=== PATIENT | male | born 1965 | race Caucasian/White ===

== ENCOUNTER 2020-05-10 13:05 | Emergency (ER) | payer MEDICAID ==
[~2020-05-10] VITALS: Ht 170.2 cm; Wt 84.0 kg
[2020-05-10 13:12] VITALS: BP 119/76
[2020-05-10] MEDS ORDERED: DIPH,PERTUSS(ACELL),TET VAC/PF 0.5 ML IM-VACC ONE ×2 (14:00→14:02)
[2020-05-10] MEDS ORDERED: HYDROcodone/APAP 5/325 TABLET PO ONE (14:00)
[2020-05-10] MEDS ORDERED: HYDROcodone/APAP 5/325 TABLET ONE (14:02)
[2020-05-10] MEDS ORDERED: LIDOCAINE-MPF 1%, 5ML ONE (14:11)
[2020-05-10] MEDS ORDERED: LIDOCAINE-MPF 1%, 5ML INFIL ONE (14:30)
== END 2020-05-10 15:20 | disposition home or self-care (01) ==
LOC: ED 14:30
DX: S01.01XA Laceration without foreign body of scalp, initial encounter (principal); W22.8XXA Striking against or struck by other objects, initial encounter; Y93.89 Activity, other specified; Y92.488 Other paved roadways as the place of occurrence of the external cause; Y99.8 Other external cause status
CPT/HCPCS: 12001; 90471; 90715; 99283

== ENCOUNTER 2020-05-23 13:53 | Emergency (ER) | payer MEDICAID ==
[~2020-05-23] VITALS: Ht 165.1 cm; Wt 84.0 kg
[2020-05-23 13:58] VITALS: BP 148/84
== END 2020-05-23 14:08 | disposition home or self-care (01) ==
LOC: ED 14:02
DX: S01.01XD Laceration without foreign body of scalp, subsequent encounter (principal); Z48.02 Encounter for removal of sutures; F17.210 Nicotine dependence, cigarettes, uncomplicated; X58.XXXD Exposure to other specified factors, subsequent encounter
CPT/HCPCS: 99281; 99406